=== PATIENT | male | born 1940 | race American Indian/Alaskan Native ===

== ENCOUNTER 2020-06-17 16:24 | Emergency (ER) | payer MEDICARE ==
[2020-06-17 16:38] VITALS: BP 164/69
--- NOTE | 2020-06-17 16:42 | Emergency Department Report ---
Blank Doc - Documentation Documentation: 79-year-old male that presents with headache and left eye pain s/p mechanical trip and fall. This initial assessment/diagnostic orders/clinical plan/treatment(s) is/are subject to change based on patient's health status, clinical progression and re- assessment by fellow clinical providers in the ED. Further treatment and workup at subsequent clinical providers discretion. Patient/guardians urged not to elope from the ED as their condition may be serious if not clinically assessed and managed. Initial orders include: 1- Patient sent to MAIN ED for further evaluation and treatment 2- CT head/cervical spint 3- cervical collarf 4- visual testing
--- NOTE | 2020-06-17 18:24 | Cat Scan Report ---
CT head/brain wo con INDICATION: headache s/p fall. TECHNIQUE: Routine CT head without contrast. All CT scans at this location are performed using CT dose reduction for ALARA by means of automated exposure control. COMPARISON: None. FINDINGS: BRAIN / INTRACRANIAL CONTENTS: No acute hemorrhage, brain edema, mass effect, or hydrocephalus. Katalina l obando-white differentiation. 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 There are areas of hypoattenuation in the cerebral white matter likely i ndicating moderate chronic small vessel ischemic change. CALVARIUM/SKULL BASE/CRANIOCERVICAL JUNCTION: No evidence of fracture. ORBITS: No significant abnormality of visualized orbits. SINUSES / MASTOIDS: No significant abnormality of visualized sinuses and mastoid air cells. ADDITIONAL FINDINGS: None. IMPRESSION: 1. No acute post-traumatic intracranial abnormality. Signer Name: Ronan Solorzano MD Signed: 06/17/2020 6:19 PM Workstation Name: [id number]
--- NOTE | 2020-06-17 18:59 | Cat Scan Report ---
CT CERVICAL SPINE WITHOUT CONTRAST INDICATION: headache s/p fall. TECHNIQUE: Axial CT images of the spine were obtained. Sagittal and coronal reformatted images were produced. Al l CT scans at this location are performed using CT dose reduction for ALARA by means of automated exp osure control. COMPARISON: None available. FINDINGS: ACUTE FRACTURE(S) OR SUBLUXATION: None. SPINAL DEGENERATIVE CHANGES: There is moderate bilateral facet DJD from C2 through C5. There is moder ate degenerative disc disease at C3-4, C4-5, and C5-6. There is no appreciable significant spinal can al or neural foraminal narrowing. There is moderate degenerative change in the atlantodental articula tion. PARASPINAL SOFT TISSUES: No soft tissue swelling or other acute abnormalities. ADDITIONAL FINDINGS: There is mild atherosclerotic calcification in the carotid bulbs and proximal ce rvical internal carotid arteries. IMPRESSION: 1. No acute fracture or subluxation in the spine in neutral position. Signer Name: Ronan Solorzano MD Signed: 06/17/2020 6:54 PM Workstation Name: [id number]
--- NOTE | 2020-06-17 22:17 | Emergency Department Report ---
ED General Adult HPI - General Chief complaint: Head Injury Stated complaint: HEAD INJURY/FALL INJURY/PAIN Time Seen by Provider: 06/17/20 16:40 Source: patient Mode of arrival: Ambulatory Limitations: No Limitations - History of Present Illness Initial comments: The patient presents to the emergency department from his home for reported fall. Patient states she slipped and lost his balance and fell he hit his head on the carpeted floor. Patient reports mild headache and some neck discomfort. He denies loss of consciousness. He denies any chest pain, shortness breath, or headache. -: Sudden Location: head, neck Radiation: non-radiation Severity scale (0 -10): 1 Quality: aching Consistency: constant Improves with: none Worsens with: none Associated Symptoms: denies other symptoms Treatments Prior to Arrival: none - Related Data Allergies Allergy/AdvReac Type Severity Reaction Status Date / Time No Known Allergies Allergy Verified 06/17/20 16:34 ED Review of Systems ROS: Stated complaint: HEAD INJURY/FALL INJURY/PAIN Other details as noted in HPI Comment: All other systems reviewed and negative Constitutional: denies: chills, fever Eyes: denies: eye pain, eye discharge, vision change ENT: denies: ear pain, throat pain Respiratory: denies: cough, shortness of breath, wheezing Cardiovascular: denies: chest pain, palpitations Endocrine: no symptoms reported Gastrointestinal: denies: abdominal pain, nausea, diarrhea Genitourinary: denies: urgency, dysuria Musculoskeletal: denies: back pain, joint swelling, arthralgia Skin: denies: rash, lesions Neurological: headache. denies: weakness, paresthesias Psychiatric: denies: anxiety, depression Hematological/Lymphatic: denies: easy bleeding, easy bruising ED Past Medical Hx - Past Medical History Previous Medical History?: Yes Additional medical history: OPEN HEART SURGERY - Surgical History Past Surgical History?: No ED Physical Exam - General Limitations: No Limitations General appearance: alert, in no apparent distress - Head Head exam: Present: atraumatic, normocephalic - Eye Eye exam: Present: normal appearance - ENT ENT exam: Present: mucous membranes moist - Neck Neck exam: Present: tenderness (Tenderness to palpation of cervical spine) - Respiratory Respiratory exam: Present: normal lung sounds bilaterally. Absent: respiratory distress - Cardiovascular Cardiovascular Exam: Present: regular rate, normal rhythm. Absent: systolic murmur, diastolic murmur, rubs, gallop - GI/Abdominal GI/Abdominal exam: Present: soft, normal bowel sounds. Absent: distended, tenderness - Rectal Rectal exam: Present: deferred - Extremities Exam Extremities exam: Present: normal inspection - Back Exam Back exam: Present: normal inspection - Neurological Exam Neurological exam: Present: alert, oriented X3, CN II-XII intact. Absent: motor sensory deficit - Psychiatric Psychiatric exam: Present: normal affect, normal mood - Skin Skin exam: Present: warm, dry, intact, normal color. Absent: rash ED Course Vital Signs 06/17/20 16:36 Temperature 98.3 F Pulse Rate 54 L Respiratory 16 Rate Blood Pressure 164/69 O2 Sat by Pulse 98 Oximetry ED Medical Decision Making - Radiology Data Radiology results: report reviewed - Medical Decision Making Discussed results with patient Critical care attestation.: If time is entered above; I have spent that time in minutes in the direct care of this critically ill patient, excluding procedure time. ED Disposition Clinical Impression: Closed head injury Disposition: DC-01 TO HOME OR SELFCARE Is pt being admited?: No Does the pt Need Aspirin: No Condition: Stable Instructions: Minor Head Injury (ED), Cervical Spine Strain (ED) Additional Instructions: return if worse Referrals: [facility] [Other] - 3-5 Days PRAKASH MCGILL MD [Staff Physician] - 3-5 Days Time of Disposition: 22:16
== END 2020-06-17 22:59 | disposition home or self-care (01) ==
LOC: ED 16:24
DX: S09.90XA Unspecified injury of head, initial encounter (principal); W18.30XA Fall on same level, unspecified, initial encounter; Y93.89 Activity, other specified; Y92.89 Other specified places as the place of occurrence of the external cause; Y99.8 Other external cause status
CPT/HCPCS: 70450; 72125